=== PATIENT | female | born 1995 | race African-American/Black ===

== ENCOUNTER 2021-02-11 16:16 | Emergency (ER) | payer OTHER ==
[~2021-02-11] VITALS: Ht 165.1 cm; Wt 140.6 kg
[2021-02-11] MEDS ORDERED: B/P MED (16:32)
[2021-02-11] MEDS ORDERED: [UNRECOGNIZED DRUG - REMARK] (16:33)
[2021-02-11 16:43] LABS: URINE BILIRUBIN NEGATIVE (Negative); URINE BLOOD NEGATIVE (Negative); URINE CLARITY CLEAR; URINE COLOR YELLOW; URINE GLUCOSE-RANDOM NEGATIVE (Negative); URINE KETONES NEGATIVE (Negative); URINE LEUKOCYTES-REFLEX TRACE (Negative); URINE NITRITE-REFLEX NEGATIVE (Negative); URINE PROTEIN NEGATIVE (Negative); URINE SPECIFIC GRAVITY 1.025 (1.005-1.030)
[2021-02-11 16:53] LABS: MUCUS 4-6 Moderate strn/LPF (None Seen); SQUAMOUS >10 Many /LPF (0-3); URINE WBC-REFLEX 6-15 Few /HPF (0-5)
[2021-02-11 16:54] LABS: CASTS None Seen /LPF (None Seen); CRYSTALS None Seen /LPF (None Seen); URINE RBC None Seen /HPF (0-2)
[2021-02-11 16:55] LABS: BACTERIA-REFLEX None Seen /HPF (None Seen)
[2021-02-11 17:02] LABS: ABSOLUTE BASOPHILS 0.1 thou/uL (0.0-0.2); ABSOLUTE EOSINOPHILS 0.2 thou/uL (0.0-0.7); ABSOLUTE LYMPHOCYTES 2.7 thou/uL (0.8-5.3); ABSOLUTE MONOCYTES 0.7 thou/uL (0.0-1.2); ABSOLUTE NEUTROPHILS 6.4 thou/uL (1.6-8.1); BASOPHILS 0.5 %; EOSINOPHILS 1.7 %; HEMATOCRIT 31.8 % (37.0-47.0); HEMOGLOBIN 10.6 gm/dL (12.0-15.0); LYMPHOCYTES 26.9 %; MCH 26.8 pg (26.0-34.0); MCHC 33.3 g/dL (28.0-37.0); MCV 80.3 fL (80.0-100.0); MONOCYTES 7.3 %; MPV 8.3 fl. (7.2-11.1); NUCLEATED RBCS 0 /100WBC; PLATELET COUNT* 388 thou/uL (150-400); POLYS 63.6 %; RBC 3.95 mil/uL (4.20-5.00); RDW-CV 17.2 % (10.5-14.5); WBC 10.1 thou/uL (4.0-11.0)
[2021-02-11 17:06] LABS: CREATININE 0.7 mg/dL (0.6-1.3)
[2021-02-11 17:11] LABS: ALBUMIN 3.2 g/dL (3.4-5.0); TOTAL BILIRUBIN 0.6 mg/dL (<0.1-1.0); TOTAL PROTEIN 7.5 g/dL (6.4-8.2)
[2021-02-11] MEDS ORDERED: CEPHALEXIN500 MG PO (18:02)
[2021-02-11 18:10] VITALS: BP 134/82
--- NOTE | 2021-02-12 13:33 | EKG ---
[place] [address] ELECTROCARDIOGRAM REPORT Name: DAIANA SALEEMDOLORESROBERT LAKEDREYOLY Room: [place]#: [id number] Admission: 02/11/21 Attend Phys: Discharge: 02/11/21 Date of : 89 Date of Service: 02/11/21 1628 Report #: [id number] THIS REPORT FOR: //name// [facility] ED Test Date: 2021-02-11 Test Time: 16:28:17 Pat Name: ELLA SALEEM Department: Room: Gender: F Doorperson Or Luggage Porter: : 1995 Requested By: Sushil Alamo Order Number: [id number] Ivone MD: Jamaal Holder Measurements Intervals [place] Rate: 85 P: 54 [place]: 168 QRS: 46 QRSD: 92 T: 1 QT: 370 QTc: 440 Interpretive Statements Sinus rhythm Borderline repolarization abnormality No previous ECG available for comparison Electronically Signed On 02-12-2021 13:32:42 CDT by Jamaal Holder [email or web address] <ELECTRONICALLY SIGNED> By: Jamaal Holder MD, [facility] 02/12/21 1332 1628 162 Jamaal Holder MD, FACC /EPI
== END 2021-02-11 18:10 | disposition home or self-care (01) ==
LOC: M.ERS 16:16
PROVIDERS: Physician Assistant
DX: N39.0 Urinary tract infection, site not specified (principal); I10 Essential (primary) hypertension; Z90.49 Acquired absence of other specified parts of digestive tract